=== PATIENT | male | born 2000 ===

== ENCOUNTER 2022-01-04 08:04 | Inpatient (IN) | payer SELFPAY ==
[2022-01-04] MEDS ORDERED: SODIUM CHLORIDE 0.9% 1000 ML 1,000 ML IV ONE ×3 (10:13→10:14)
[2022-01-04] MEDS ORDERED: dexAMETHasone 20 MG/5 ML VIAL IV ONE (10:13)
[2022-01-04] MEDS ORDERED: ACETAMINOPHEN 500 MG TAB PO ONE (10:14)
--- NOTE | 2022-01-04 10:20 | Emergency Department Report ---
HPI - General Chief Complaint: Fever Time Seen by Provider: 01/04/22 09:57 - HPI HPI: Room 19 The patient is a 21-year-old male present with a chief complaint of nausea vomiting diarrhea and shortness of breath. Patient states that he was diagnosed with COVID 12/21/2021. Patient states she has been vaccinated against Covid receiving 250 vaccines with the second dose occurring in September 2021. Patient states he was in his usual state of health until last night he developed chills, body aches, nausea/vomiting and diarrhea. Patient denies cough but states he developed shortness of breath last night. Patient is to fever and headache. ED Past Medical Hx - Past Medical History Previous Medical History?: Yes Additional medical history: COVID - Surgical History Past Surgical History?: No - Family History Family history: no significant - Social History Smoking Status: Never Smoker Substance Use Type: None (Denies illicit drug use), Alcohol (Rarely) ED Review of Systems ROS: Stated complaint: COUGH,CHILLS Other details as noted in HPI Constitutional: fever Eyes: denies: eye pain ENT: denies: throat pain Respiratory: shortness of breath. denies: cough Cardiovascular: denies: chest pain Endocrine: no symptoms reported Gastrointestinal: nausea, vomiting, diarrhea Genitourinary: denies: dysuria Musculoskeletal: myalgia Skin: denies: change in color Neurological: headache Physical Exam - Physical Exam Vital Signs: Vital Signs 01/04/22 01/04/22 01/04/22 09:30 09:59 10:03 Temperature 100.8 F H 100.8 F H Pulse Rate 130 H Respiratory 20 Rate Blood Pressure 129/75 [Right] O2 Sat by Pulse 96 98 Oximetry Physical Exam: GENERAL: The patient is well-developed well-nourished male lying on stretcher not appearing to be in acute distress. [] HEENT: Normocephalic. Atraumatic. Extraocular motions are intact. Patient has moist mucous membranes. NECK: Supple. Trachea midline CHEST/LUNGS: Clear to auscultation. There is no respiratory distress noted. HEART/CARDIOVASCULAR: Regular. There is tachycardia. There is no gallop rub or murmur. ABDOMEN: Abdomen is soft, nontender. Patient has normal bowel sounds. There is no abdominal distention. SKIN: There is no rash. There is no edema. There is no diaphoresis. NEURO: The patient is awake, alert, and oriented. The patient is cooperative. The patient has no focal neurologic deficits. The patient has normal speech. GCS 15 MUSCULOSKELETAL: There is no evidence of acute injury. ED Course Vital Signs 01/04/22 01/04/22 01/04/22 09:30 09:59 10:03 Temperature 100.8 F H 100.8 F H Pulse Rate 130 H Respiratory 20 Rate Blood Pressure 129/75 [Right] O2 Sat by Pulse 96 98 Oximetry ED Medical Decision Making - Lab Data Result diagrams: 01/04/22 10:18 01/04/22 10:18 Laboratory Tests 01/04/22 01/04/22 01/04/22 10:18 10:18 10:18 WBC 19.6 H RBC 5.96 H Hgb 15.8 H Hct 49.4 H MCV 83 L MCH 27 L MCHC 32 RDW 13.7 Plt Count 287 Lymph % (Auto) 4.4 L [place] % (Auto) 7.3 Eos % (Auto) 0.1 Baso % (Auto) 0.4 Lymph # (Auto) 0.9 L [place] # (Auto) 1.4 H Eos # (Auto) 0.0 Baso # (Auto) 0.1 Seg Neutrophils % 87.8 H Seg Neutrophils # 17.2 H Sodium 137 Potassium 4.4 Chloride 101.4 Carbon Dioxide 23 Anion Gap 17 BUN 12 Creatinine 1.0 Estimated GFR > 60 BUN/Creatinine Ratio 12 Glucose 108 H Lactic Acid 2.20 H* Calcium 10.0 Total Bilirubin 0.60 AST 26 ALT 30 Alkaline Phosphatase 90 Total Protein 7.9 Albumin 4.3 Albumin/Globulin Ratio 1.2 - Radiology Data Radiology results: report reviewed (Chest x-ray), image reviewed (Chest x-ray) interpreted by me: Chest x-ray-left lower lobe consolidation [facility] [address] [place] [address] XRay Report Signed Patient: CATERINA DENNISON MR#: [id number] : 2000 Acct:[id number] Age/Sex: 21 / M ADM Date: 01/04/22 Loc: ED Attending Dr: Ordering Physician: ABBY MAYER MD Date of Service: 01/04/22 Procedure(s): XR chest 1V ap Accession Number(s): [id number] cc: ABBY MAYER MD Fluoro Time In Minutes: CHEST 1 VIEW 01/04/2022 9:43 AM INDICATION / CLINICAL INFORMATION: Shortness of breath, Covid positive. COMPARISON: None available. FINDINGS: SUPPORT DEVICES: None. HEART / MEDIASTINUM: No significant abnormality. LUNGS / PLEURA: Bilateral lower lung zone parenchymal disease, left greater than right. No pneumothorax. ADDITIONAL FINDINGS: No significant addit ional findings. IMPRESSION: 1. Bilateral lower lobe pneumonia Signer Name: Tr Lopez MD Signed: 01/04/2022 10:44 AM Workstation Name: [id number] Transcribed By: TL Dictated By: Tr Lopez MD Electronically Authenticated By: Tr Lopez MD Signed Date/Time: 01/04/221043 DD/ 43 TD/TT: - Differential Diagnosis COVID pneumonia, dehydration Critical care attestation.: If time is entered above; I have spent that time in minutes in the direct care of this critically ill patient, excluding procedure time. ED Disposition Clinical Impression: Pneumonia due to COVID-19 virus Disposition: ADMITTED INPATIENT Is pt being admited?: Yes Does the pt Need Aspirin: No Condition: Fair Instructions: Bacterial Pneumonia (ED) Referrals: PRIMARY CARE, [Primary Care Provider] - 3-5 Days Time of Disposition: 12:28 (Hospitalist called (Dr. Marino))
--- NOTE | 2022-01-04 10:48 | XRay Report ---
CHEST 1 VIEW 01/04/2022 9:43 AM INDICATION / CLINICAL INFORMATION: Shortness of breath, Covid positive. COMPARISON: None available. FINDINGS: SUPPORT DEVICES: None. HEART / MEDIASTINUM: No significant abnormality. LUNGS / PLEURA: Bilateral lower lung zone parenchymal disease, left greater than right. No pneumothor ax. ADDITIONAL FINDINGS: No significant additional findings. IMPRESSION: 1. Bilateral lower lobe pneumonia Signer Name: Tr Lopez MD Signed: 01/04/2022 10:44 AM Workstation Name: [id number]
[2022-01-04 11:00] LABS: Alanine Aminotransferase 30 units/L (7-56); Albumin 4.3 g/dL (3.9-5); BUN/Creatinine Ratio 12; Blood Urea Nitrogen 12 mg/dL (9-20); Hemolysis Index 24
[2022-01-04 11:10] LABS: Basophils # (Auto) 0.1 K/mm3 (0.0-0.1); Basophils % (Auto) 0.4 % (0.0-1.8); Eosinophils % (Auto) 0.1 % (0.0-4.3); Hematocrit 49.4 % (35.5-45.6); Hemoglobin 15.8 gm/dl (11.8-15.2); Lymphocytes # (Auto) 0.9 K/mm3 (1.2-5.4); Lymphocytes % (Auto) 4.4 % (13.4-35.0); Mean Corpuscular HGB Conc 32 % (32-34); Mean Corpuscular Volume 83 fl (84-94); Monocytes # (Auto) 1.4 K/mm3 (0.0-0.8); Monocytes % (Auto) 7.3 % (0.0-7.3); Platelet Count 287 K/mm3 (140-440); Red Blood Count 5.96 M/mm3 (3.65-5.03); Red Cell Distribution Width 13.7 % (13.2-15.2)
[2022-01-04] MEDS ORDERED: AZITHROMYCIN/NS 500 MG/250 ML 500 MG/250 ML BAG IV ONE (11:16)
[2022-01-04] MEDS ORDERED: cefTRIAXone/NS 1 GM/50 ML 1 GM/50 ML BAG IV ONE (11:16)
[2022-01-04] MEDS ORDERED: ACETAMINOPHEN 325 MG TAB PO PRN (13:54)
[2022-01-04] MEDS ORDERED: ONDANSETRON 4 MG/2 ML INJ IV PRN (13:54)
[2022-01-04] MEDS ORDERED: MORPHINE 2 MG/1 ML INJ IV PRN (13:58)
[2022-01-04] MEDS ORDERED: oxyCODONE /ACETAMINOPHEN 5-325MG TAB PO PRN (13:58)
[2022-01-04] MEDS ORDERED: AZITHROMYCIN/NS 500 MG/250 ML 500 MG/250 ML BAG IV SCH (14:00)
[2022-01-04] MEDS: FAMOTIDINE 20 MG TAB PO SCH ×2 (17:10→22:00)
[2022-01-04] MEDS: ENOXAPARIN 40 MG/0.4 ML INJ SUB-Q SCH (17:10)
[2022-01-04] MEDS: dexAMETHasone 4 MG/ML VIAL IV SCH (17:10)
[2022-01-04] MEDS: cefTRIAXone/NS 2 GM/100 ML 2 GM/100 ML BAG IV SCH (17:11)
[2022-01-04] MEDS: SODIUM CHLORIDE 0.9% 1000 ML 1,000 ML IV SCH (18:39)
--- NOTE | 2022-01-04 20:34 | History and Physical Report ---
History of Present Illness Date of examination: 01/04/22 Date of admission: 01/04/22 13:55 Chief complaint: Cough and shortness of breath for 1 week Fever chills and body aches for 1 day Covid positive on December 21, 2021 History of present illness: 21-year-old [place]zbek-speaking male with no significant past medical history comes in for shortness of breath and nausea and vomiting for 1 week. Patient was apparently diagnosed with Covid infection on December 21, 2021. Patient states that he has been vaccinated and received 2 doses in September 2021. Patient was in his usual health till yesterday when he developed fever and chills body aches, nausea vomiting and diarrhea because of which he came to the emergency room early hours of the morning. Patient denies cough but developed shortness of breath since last night. - Past Medical History --Previous Medical History?: Yes --Additional medical history: COVID - Surgical History --Past Surgical History?: No - Family History --Family history: no significant - Social History --Smoking Status: Never Smoker --Substance Use Type: None (Denies illicit drug use), Alcohol (Rarely) -Review of Systems --ROS: --Constitutional fever chills and body aches for 1 to 2 days., Patient was Covid positive on December 21, 2021 --Neck no neck stiffness no lymph gland enlargement --Chest and lungs shortness of breath for 1 week --CVS no chest pain no diaphoresis no palpitations --GI no nausea no vomiting no diarrhea --Genitourinary system no dysuria no flank pain --Musculoskeletal system no muscle pains no joint pains --[employer]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 seizures --Skin no rash no itching --Psychiatric no depression no homicidal or suicidal tendencies --Hematologic no lymphedema or bruising --Endocrine no polydipsia no polyuria no cold intolerance no heat intolerance Medications and Allergies Allergies Allergy/AdvReac Type Severity Reaction Status Date / Time No Known Allergies Allergy Verified 01/04/22 09:58 Home Medications Medication Instructions Recorded Confirmed Last Taken Type No Known Home Medications [No 01/04/22 01/04/22 Unknown History Reported Home Medications] Active Meds: Active Medications Acetaminophen (Acetaminophen 325 Mg Tab) 650 mg PO Q4H PRN PRN Reason: Pain MILD(1-3)/Fever >100.5/MADRID Dexamethasone (Dexamethasone 4 Mg/Ml Vial) 8 mg IV Q24H [facility] Last Admin: 01/04/22 17:10 Dose: 8 mg Enoxaparin Sodium (Enoxaparin 40 Mg/0.4 Ml Inj) 40 mg SUB-Q QDAY [facility] Last Admin: 01/04/22 17:10 Dose: 40 mg Famotidine (Famotidine 20 Mg Tab) 20 mg PO BID [facility] Last Admin: 01/04/22 17:10 Dose: 20 mg Sodium Chloride (Nacl 0.9% 1000 Ml) 1,000 mls @ 75 mls/hr IV DIRECT ELVIN Stop: 01/05/22 08:00 Last Admin: 01/04/22 18:39 Dose: 75 mls/hr Azithromycin (Zithromax/Ns) 500 mg in 250 mls @ 250 mls/hr IV Q24H [facility] Last Admin: 01/04/22 17:11 Dose: 250 mls/hr Ceftriaxone Sodium (Rocephin/Ns 2 Gm/100 Ml) 2 gm in 100 mls @ 200 mls/hr IV Q24HR [facility]; Protocol Last Admin: 01/04/22 17:11 Dose: 200 mls/hr Morphine Sulfate (Morphine 2 Mg/1 Ml Inj) 2 mg IV Q4H PRN PRN Reason: Pain, Moderate (4-6) Ondansetron HCl (Ondansetron 4 Mg/2 Ml Inj) 4 mg IV Q8H PRN PRN Reason: Nausea And Vomiting Oxycodone/Acetaminophen (Oxycodone /Acetaminophen 5-325mg Tab) 1 tab PO Q6H PRN PRN Reason: Pain, Moderate (4-6) Sodium Chloride (Sodium Chloride 0.9% 10 Ml Flush Syringe) 10 ml IV BID [facility] Last Admin: 01/04/22 17:11 Dose: 10 ml Sodium Chloride (Sodium Chloride 0.9% 10 Ml Flush Syringe) 10 ml IV PRN PRN PRN Reason: LINE FLUSH Exam - Constitutional Vitals: Temp Pulse Resp BP Pulse Ox 100.8 F H 108 H 16 115/94 99 01/04/22 10:03 01/04/22 18:19 01/04/22 18:19 01/04/22 18:19 01/04/22 18:19 General appearance: Present: no acute distress, well-nourished - EENT Eyes: Present: PERRL ENT: hearing intact, clear oral mucosa - Neck Neck: Present: supple, normal ROM - Respiratory Respiratory effort: normal Respiratory: bilateral: CTA, rales, rhonchi - Cardiovascular Heart rate: 78 Rhythm: regular Heart Sounds: Present: S1 & S2. Absent: rub, click - Extremities Extremities: no ischemia, pulses symmetrical, No edema Peripheral Pulses: within normal limits - Abdominal General gastrointestinal: Present: soft, non-tender, non-distended, normal bowel sounds Male genitourinary: Present: normal - Integumentary Integumentary: Present: clear, warm, dry - Musculoskeletal Musculoskeletal: gait normal, strength equal bilaterally - Psychiatric Psychiatric: appropriate mood/affect, intact judgment & insight - Neurologic Neurologic: CNII-XII intact, moves all extremities - Allied Health Allied health notes reviewed: nursing, case management Results - Labs CBC & Chem 7: 01/04/22 10:18 01/04/22 10:18 Labs: Laboratory Last Values WBC 19.6 K/mm3 (4.5-11.0) H 01/04/22 10:18 RBC 5.96 M/mm3 (3.65-5.03) H 01/04/22 10:18 Hgb 15.8 gm/dl (11.8-15.2) H 01/04/22 10:18 Hct 49.4 % (35.5-45.6) H 01/04/22 10:18 MCV 83 fl (84-94) L 01/04/22 10:18 MCH 27 pg (28-32) L 01/04/22 10:18 MCHC 32 % (32-34) 01/04/22 10:18 RDW 13.7 % (13.2-15.2) 01/04/22 10:18 Plt Count 287 K/mm3 (140-440) 01/04/22 10:18 Lymph % (Auto) 4.4 % (13.4-35.0) L 01/04/22 10:18 [place] % (Auto) 7.3 % (0.0-7.3) 01/04/22 10:18 Eos % (Auto) 0.1 % (0.0-4.3) 01/04/22 10:18 Baso % (Auto) 0.4 % (0.0-1.8) 01/04/22 10:18 Lymph # (Auto) 0.9 K/mm3 (1.2-5.4) L 01/04/22 10:18 [place] # (Auto) 1.4 K/mm3 (0.0-0.8) H 01/04/22 10:18 Eos # (Auto) 0.0 K/mm3 (0.0-0.4) 01/04/22 10:18 Baso # (Auto) 0.1 K/mm3 (0.0-0.1) 01/04/22 10:18 Seg Neutrophils % 87.8 % (40.0-70.0) H 01/04/22 10:18 Seg Neutrophils # 17.2 K/mm3 (1.8-7.7) H 01/04/22 10:18 Sodium 137 mmol/L (137-145) 01/04/22 10:18 Potassium 4.4 mmol/L (3.6-5.0) 01/04/22 10:18 Chloride 101.4 mmol/L (98-107) 01/04/22 10:18 Carbon Dioxide 23 mmol/L (22-30) 01/04/22 10:18 Anion Gap 17 mmol/L 01/04/22 10:18 BUN 12 mg/dL (9-20) 01/04/22 10:18 Creatinine 1.0 mg/dL (0.8-1.3) 01/04/22 10:18 Estimated GFR > 60 ml/min 01/04/22 10:18 BUN/Creatinine Ratio 12 % 01/04/22 10:18 Glucose 108 mg/dL (75-100) H 01/04/22 10:18 Lactic Acid 1.90 mmol/L (0.7-2.0) 01/04/22 13:43 Calcium 10.0 mg/dL (8.4-10.2) 01/04/22 10:18 Total Bilirubin 0.60 mg/dL (0.1-1.2) 01/04/22 10:18 AST 26 units/L (5-40) 01/04/22 10:18 ALT 30 units/L (7-56) 01/04/22 10:18 Alkaline Phosphatase 90 units/L (35-129) 01/04/22 10:18 Total Protein 7.9 g/dL (6.3-8.2) 01/04/22 10:18 Albumin 4.3 g/dL (3.9-5) 01/04/22 10:18 Albumin/Globulin Ratio 1.2 % 01/04/22 10:18 Short CBC 01/04/22 Range/Units 10:18 WBC 19.6 H (4.5-11.0) K/mm3 Hgb 15.8 H (11.8-15.2) gm/dl Hct 49.4 H (35.5-45.6) % Plt Count 287 (140-440) K/mm3 BMP 01/04/22 10:18 Sodium 137 Potassium 4.4 Chloride 101.4 Carbon Dioxide 23 BUN 12 Creatinine 1.0 Glucose 108 H Calcium 10.0 Liver Function 01/04/22 Range/Units 10:18 Total Bilirubin 0.60 (0.1-1.2) mg/dL AST 26 (5-40) units/L ALT 30 (7-56) units/L Alkaline Phosphatase 90 (35-129) units/L Albumin 4.3 (3.9-5) g/dL Microbiology: Microbiology 01/04/22 10:18 Peripheral/Venous Blood Culture - Preliminary Culture in Progress 01/04/22 10:18 Peripheral/Venous Blood Culture - Preliminary Culture in Progress - Imaging and Cardiology Chest x-ray: report reviewed Imaging and Cardiology: Chest x-ray Bilateral lower lobe pneumonia Assessment and Plan Advance Directives: Yes (Full code) VTE prophylaxis?: Chemical Plan of care discussed with patient/family: Yes - Patient Problems (1) SIRS (systemic inflammatory response syndrome) Current Visit: Yes Status: Acute Plan to address problem: Clinical picture consistent with systemic inflammatory response syndrome. Patient's white count is 90,600. Lactic acidosis slightly high at 2.2. (2) Acute respiratory failure with hypoxia Current Visit: Yes Status: Acute Plan to address problem: Patient is hypoxic on room air. Patient has bilateral infiltrates. Possible Covid pneumonia. Needs oxygen supplementation. On 6 L nasal cannula oxygen. (3) Bilateral pneumonia Current Visit: Yes Status: Acute Plan to address problem: Patient started on IV Zithromax and IV ceftriaxone for now IV Decadron also. (4) Person under investigation for COVID-19 Current Visit: Yes Status: Acute Plan to address problem: Patient under investigation for Covid status. Patient has Patient had vaccination x2 doses. Had vaccination in September 2021. Due for booster in 6 months. (5) DVT prophylaxis Current Visit: Yes Status: Acute Plan to address problem: On Lovenox and GI prophylaxis (6) Advance care planning Current Visit: Yes Status: Acute
[2022-01-05 05:07] LABS: Basophils % (Auto) 0.3 % (0.0-1.8); Hematocrit 44.5 % (35.5-45.6); Hemoglobin 14.2 gm/dl (11.8-15.2); Lymphocytes # (Auto) 1.4 K/mm3 (1.2-5.4); Lymphocytes % (Auto) 8.5 % (13.4-35.0); Mean Corpuscular HGB Conc 32 % (32-34); Mean Corpuscular Volume 83 fl (84-94); Monocytes # (Auto) 0.5 K/mm3 (0.0-0.8); Monocytes % (Auto) 3.1 % (0.0-7.3); Platelet Count 282 K/mm3 (140-440); Red Blood Count 5.35 M/mm3 (3.65-5.03)
[2022-01-05 05:29] LABS: Alanine Aminotransferase 23 units/L (7-56); Albumin 3.9 g/dL (3.9-5); BUN/Creatinine Ratio 14; Blood Urea Nitrogen 11 mg/dL (9-20); Calcium 9.2 mg/dL (8.4-10.2); Hemolysis Index 11
[2022-01-05] MEDS: SODIUM CHLORIDE 0.9% 1000 ML 1,000 ML IV SCH (05:39)
--- NOTE | 2022-01-05 08:31 | Progress Note ---
Assessment and Plan Assessment and plan: #Sepsis secondary to Pneumonia #Lactic acidosis-resolved -afebrile, WBC count and tachycardia improving -Blood culture 01/04 NGTD x 24hrs, will continue to monitor for further growth -continue treatment of PNA as below #Acute respiratory failure with hypoxia-resolved -patient weaned to RA without issue -likely secondary to PNA #Bilateral pneumonia -CXR suggestive of PNA -continue zithromax and rocephin for 3 and 5 days total course -procalcitonin ordered -ID following, assistance appreciated #Person under investigation for COVID-19 -Coronavirus PCR pending -diagnosed with COVID-19 December 10 at urgent care -vaccinated x 2 doses #Obesity - Counseled patient on the importance of weight loss, incorporating exercise, and dietary changes (lean meats, fresh fruits and vegetables, and water intake). Patient expresses understanding. - Time: +15 min #Advanced care planning -Disease education conducted, care plan discussed, diagnoses discussed, prognosis discussed, and patient acknowledges understanding with care plan -Time: +30 min History Interval history: No acute events overnight. Patient reports feeling much better than he did when he first came. Denies nausea and vomiting at this time. Has had productive cough in the past, but no cough this hospitalization. Hospitalist Physical - Physical exam Narrative exam: GENERAL: Well-developed well-nourished. In no acute distress. HEENT: Normocephalic. Atraumatic. NECK: Supple. CHEST/LUNGS: CTAB on room air HEART/CARDIOVASCULAR: RRR. No murmur, rubs or gallops appreciated. ABDOMEN: +BS. NT/ND. SKIN: No rashes noted. NEURO: No focal motor deficit. Follows all commands. MUSCULOSKELETAL: No joint effusion EXTREMITIES: No cyanosis, clubbing or edema. PSYCH: Cooperative. - Constitutional Vitals: Temp Pulse Resp BP Pulse Ox 97.7 F 98 H 20 157/81 92 01/05/22 05:09 01/05/22 05:09 01/05/22 05:09 01/05/22 05:09 01/05/22 05:09 General appearance: Present: no acute distress, well-nourished Results - Labs CBC & Chem 7: 01/05/22 04:14 01/05/22 04:14 Labs: Laboratory Last Values WBC 16.5 K/mm3 (4.5-11.0) H 01/05/22 04:14 RBC 5.35 M/mm3 (3.65-5.03) H 01/05/22 04:14 Hgb 14.2 gm/dl (11.8-15.2) 01/05/22 04:14 Hct 44.5 % (35.5-45.6) 01/05/22 04:14 MCV 83 fl (84-94) L 01/05/22 04:14 MCH 27 pg (28-32) L 01/05/22 04:14 MCHC 32 % (32-34) 01/05/22 04:14 RDW 14.0 % (13.2-15.2) 01/05/22 04:14 Plt Count 282 K/mm3 (140-440) 01/05/22 04:14 Lymph % (Auto) 8.5 % (13.4-35.0) L 01/05/22 04:14 [place] % (Auto) 3.1 % (0.0-7.3) 01/05/22 04:14 Eos % (Auto) 0.0 % (0.0-4.3) 01/05/22 04:14 Baso % (Auto) 0.3 % (0.0-1.8) 01/05/22 04:14 Lymph # (Auto) 1.4 K/mm3 (1.2-5.4) 01/05/22 04:14 [place] # (Auto) 0.5 K/mm3 (0.0-0.8) 01/05/22 04:14 Eos # (Auto) 0.0 K/mm3 (0.0-0.4) 01/05/22 04:14 Baso # (Auto) 0.0 K/mm3 (0.0-0.1) 01/05/22 04:14 Seg Neutrophils % 88.1 % (40.0-70.0) H 01/05/22 04:14 Seg Neutrophils # 14.5 K/mm3 (1.8-7.7) H 01/05/22 04:14 Sodium 138 mmol/L (137-145) 01/05/22 04:14 Potassium 4.0 mmol/L (3.6-5.0) 01/05/22 04:14 Chloride 103.8 mmol/L (98-107) 01/05/22 04:14 Carbon Dioxide 22 mmol/L (22-30) 01/05/22 04:14 Anion Gap 16 mmol/L 01/05/22 04:14 BUN 11 mg/dL (9-20) 01/05/22 04:14 Creatinine 0.8 mg/dL (0.8-1.3) 01/05/22 04:14 Estimated GFR > 60 ml/min 01/05/22 04:14 BUN/Creatinine Ratio 14 % 01/05/22 04:14 Glucose 174 mg/dL (75-100) H 01/05/22 04:14 Lactic Acid 1.90 mmol/L (0.7-2.0) 01/04/22 13:43 Calcium 9.2 mg/dL (8.4-10.2) 01/05/22 04:14 Total Bilirubin 0.40 mg/dL (0.1-1.2) 01/05/22 04:14 AST 16 units/L (5-40) 01/05/22 04:14 ALT 23 units/L (7-56) 01/05/22 04:14 Alkaline Phosphatase 68 units/L (35-129) 01/05/22 04:14 Total Protein 7.0 g/dL (6.3-8.2) 01/05/22 04:14 Albumin 3.9 g/dL (3.9-5) 01/05/22 04:14 Albumin/Globulin Ratio 1.3 % 01/05/22 04:14 Microbiology: Microbiology 01/04/22 10:18 Peripheral/Venous Blood Culture - Preliminary Culture in Progress 01/04/22 10:18 Peripheral/Venous Blood Culture - Preliminary Culture in Progress Active Medications - Current Medications Current Medications: Generic Name Dose Route Start Last Admin Trade Name Freq PRN Reason Stop Dose Admin Acetaminophen 650 mg 01/04/22 13:54 Acetaminophen 325 Mg Tab PO Q4H PRN Pain MILD(1-3)/Fever >100.5/MADRID Azithromycin 500 mg 01/05/22 10:00 Azithromycin 250 Mg Tab PO 01/08/22 10:01 QDAY ELVIN Dexamethasone 8 mg 01/04/22 14:00 01/04/22 17:10 Dexamethasone 4 Mg/Ml Vial IV 8 mg Q24H ELVIN Administration Enoxaparin Sodium 40 mg 01/04/22 14:00 01/04/22 17:10 Enoxaparin 40 Mg/0.4 Ml Inj SUB-Q 40 mg QDAY ELVIN Administration Famotidine 20 mg 01/04/22 14:00 01/04/22 22:00 Famotidine 20 Mg Tab PO 20 mg BID ELVIN Administration Ceftriaxone Sodium 2 gm in 100 mls @ 200 mls/hr 01/04/22 14:00 01/04/22 17:11 Rocephin/Ns 2 Gm/100 Ml IV 01/08/22 18:59 200 mls/hr Q24HR ELVIN Administration Protocol Morphine Sulfate 2 mg 01/04/22 13:58 Morphine 2 Mg/1 Ml Inj IV Q4H PRN Pain, Moderate (4-6) Ondansetron HCl 4 mg 01/04/22 13:54 Ondansetron 4 Mg/2 Ml Inj IV Q8H PRN Nausea And Vomiting Oxycodone/Acetaminophen 1 tab 01/04/22 13:58 Oxycodone /Acetaminophen 5-325mg Tab PO Q6H PRN Pain, Moderate (4-6) Sodium Chloride 10 ml 01/04/22 14:00 01/04/22 22:01 Sodium Chloride 0.9% 10 Ml Flush Syringe IV 10 ml BID ELVIN Administration Sodium Chloride 10 ml 01/04/22 13:54 Sodium Chloride 0.9% 10 Ml Flush Syringe IV PRN PRN LINE FLUSH
[2022-01-05] MEDS: ENOXAPARIN 40 MG/0.4 ML INJ SUB-Q SCH (10:32)
[2022-01-05] MEDS: cefTRIAXone/NS 2 GM/100 ML 2 GM/100 ML BAG IV SCH (10:32)
[2022-01-05] MEDS: AZITHROMYCIN 250 MG TAB PO SCH (10:33)
[2022-01-05] MEDS: FAMOTIDINE 20 MG TAB PO SCH ×2 (10:33→21:30)
--- NOTE | 2022-01-05 11:14 | Consultation ---
History of Present Illness - Reason for Consult Consult date: 01/05/22 - History of Present Illness 21-year-old male no past medical history presented to hospital complaining of shortness of breath for the past 1 week. This is associated with nausea and vomiting. He reported being diagnosed with COVID-19 on 12/21/2021 despite being vaccinated rhytidosis. He also developed 1 day of fevers, chills, body aches. Febrile to 100.8, tachycardic with a white count of 19.6. Normal renal functio n, pending procalcitonin and Covid PCR. Currently on ceftriaxone and azithromycin. Blood cultures pending. Imaging personally reviewed: Chest x-ray: Bilateral lower lobe pneumonia. Review of systems: Deferred to reduce to the risk of transmission of COVID-19 Past History Past Medical History: No medical history Past Surgical History: No surgical history Social history: no significant social history Family history: diabetes Medications and Allergies Allergies Allergy/AdvReac Type Severity Reaction Status Date / Time No Known Allergies Allergy Verified 01/04/22 09:58 Home Medications Medication Instructions Recorded Confirmed Last Taken Type No Known Home Medications [No 01/04/22 01/04/22 Unknown History Reported Home Medications] Active Meds: Active Medications Acetaminophen (Acetaminophen 325 Mg Tab) 650 mg PO Q4H PRN PRN Reason: Pain MILD(1-3)/Fever >100.5/MADRID Azithromycin (Azithromycin 250 Mg Tab) 500 mg PO QDAY [facility] Stop: 01/08/22 10:01 Last Admin: 01/05/22 10:33 Dose: 500 mg Dexamethasone (Dexamethasone 4 Mg/Ml Vial) 8 mg IV Q24H [facility] Last Admin: 01/04/22 17:10 Dose: 8 mg Enoxaparin Sodium (Enoxaparin 40 Mg/0.4 Ml Inj) 40 mg SUB-Q QDAY [facility] Last Admin: 01/05/22 10:32 Dose: 40 mg Famotidine (Famotidine 20 Mg Tab) 20 mg PO BID [facility] Last Admin: 01/05/22 10:33 Dose: 20 mg Ceftriaxone Sodium (Rocephin/Ns 2 Gm/100 Ml) 2 gm in 100 mls @ 200 mls/hr IV Q24HR [facility]; Protocol Stop: 01/08/22 18:59 Last Admin: 01/05/22 10:32 Dose: 200 mls/hr Morphine Sulfate (Morphine 2 Mg/1 Ml Inj) 2 mg IV Q4H PRN PRN Reason: Pain, Moderate (4-6) Ondansetron HCl (Ondansetron 4 Mg/2 Ml Inj) 4 mg IV Q8H PRN PRN Reason: Nausea And Vomiting Oxycodone/Acetaminophen (Oxycodone /Acetaminophen 5-325mg Tab) 1 tab PO Q6H PRN PRN Reason: Pain, Moderate (4-6) Sodium Chloride (Sodium Chloride 0.9% 10 Ml Flush Syringe) 10 ml IV BID [facility] Last Admin: 01/05/22 10:33 Dose: 10 ml Sodium Chloride (Sodium Chloride 0.9% 10 Ml Flush Syringe) 10 ml IV PRN PRN PRN Reason: LINE FLUSH Physical Examination - Physical Exam Narrative exam: Physical exam deferred to reduce risk of transmission of COVID-19. Please refer to primary team's note. - Constitutional Vitals: Vital Signs Temp Pulse Resp BP Pulse Ox 97.7 F 98 H 20 157/81 98 01/05/22 05:09 01/05/22 05:09 01/05/22 05:09 01/05/22 05:09 01/05/22 10:00 Temperature -Last 24 Hours Temperature 97.7 F Temperature 98.3 F Temperature 97.9 F Results - Labs CBC & Chem 7: 01/05/22 04:14 01/05/22 04:14 Labs: Abnormal lab results 01/04/22 01/05/22 01/05/22 Range/Units 10:18 04:14 04:14 WBC 19.6 H 16.5 H (4.5-11.0) K/mm3 RBC 5.96 H 5.35 H (3.65-5.03) M/mm3 Hgb 15.8 H (11.8-15.2) gm/dl Hct 49.4 H (35.5-45.6) % MCV 83 L 83 L (84-94) fl MCH 27 L 27 L (28-32) pg Lymph % (Auto) 4.4 L 8.5 L (13.4-35.0) % Lymph # (Auto) 0.9 L (1.2-5.4) K/mm3 Dougherty # (Auto) 1.4 H (0.0-0.8) K/mm3 Seg Neutrophils % 87.8 H 88.1 H (40.0-70.0) % Seg Neutrophils # 17.2 H 14.5 H (1.8-7.7) K/mm3 Glucose 174 H (75-100) mg/dL Assessment and Plan Cultures: Blood culture pending A/P: 21-year-old man past medical history morbid obesity now with: #Acute sepsis: With fevers, leukocytosis, tachycardia. Secondary to bilateral pneumonia. #Bilateral pneumonia: Reportedly was diagnosed with COVID-19 2 weeks ago, however no documentation of it. Probably more likely bacterial pneumonia. Saturations remaining high. #Morbid obesity Recs: -Agree with ceftriaxone and azithromycin for 5 and 3 days respectively -Follow COVID-19 PCR -Ordered procalcitonin -Follow blood cultures Thank you for the consult, we will continue to follow. Dylan Thornton MD [facility] ([facility]) O: [phone] F: [phone]
[2022-01-05 11:45] LABS: Bilirubin,Urine NEG (Negative); Blood,Urine NEG (Negative); Color,Urine Yellow (Yellow); Mucus,Urine FEW /HPF; Protein,Urine <15 mg/dL mg/dL (Negative); Urobilinogen,Urine < 2.0 mg/dL (<2.0); WBC,Urine < 1.0 /HPF (0.0-6.0)
[2022-01-05] MEDS: dexAMETHasone 4 MG/ML VIAL IV SCH (13:22)
[2022-01-06 05:26] VITALS: BP 145/81
[2022-01-06 08:35] LABS: Hematocrit 46.6 % (35.5-45.6); Mean Corpuscular HGB Conc 32 % (32-34); Mean Corpuscular Volume 83 fl (84-94); Platelet Count 315 K/mm3 (140-440); Red Blood Count 5.61 M/mm3 (3.65-5.03); Red Cell Distribution Width 14.6 % (13.2-15.2)
[2022-01-06] MEDS: FAMOTIDINE 20 MG TAB PO SCH (09:05)
[2022-01-06] MEDS: AZITHROMYCIN 250 MG TAB PO SCH (09:05)
[2022-01-06] MEDS: cefTRIAXone/NS 2 GM/100 ML 2 GM/100 ML BAG IV SCH (09:06)
[2022-01-06] MEDS: ENOXAPARIN 40 MG/0.4 ML INJ SUB-Q SCH (09:06)
--- NOTE | 2022-01-06 09:39 | Discharge Summary ---
Providers - Providers Date of Admission: 01/04/22 13:55 Attending physician: ETHAN NINA MD 01/04/22 13:58 Consult to Physician [CONS] Routine Comment: Consulting Provider: JIAN JO Physician Instructions: Reason For Exam: Bilateral pneumonia Primary care physician: NJ RODRIGUEZ MD Hospitalization Condition: Fair Disposition: 30 STILL A PATIENT Exam - Constitutional Vitals: Temp Pulse Resp BP Pulse Ox 97.7 F 86 18 145/81 100 01/06/22 04:49 01/06/22 04:49 01/06/22 04:49 01/06/22 04:49 01/06/22 07:23 Plan Care Plan Goals: If you began to have worsening cough, shortness of breath or ill feeling, please see your PCP. Please complete the antibiotics you've been prescribed. Follow up with: NJ RODRIGUEZ MD [Primary Care Provider] - 3-5 Days Prescriptions: Amoxicillin/K Clav Tab [Augmentin 875 mg] 1 tab PO Q12HR 3 Days #6 tab Azithromycin [Zithromax TAB] 500 mg PO QDAY 1 Days #1 tablet
[2022-01-06] MEDS ORDERED: DEXAMETHASONE 4 MG TAB PO SCH (10:00)
== END 2022-01-06 10:49 | disposition home or self-care (01) | DRG 871 ==
LOC: ED 08:04 → 3A 13:55
PROVIDERS: ADMIT Internal Medicine; ATTEND Student in an Organized Health Care Education/Training Program
DX: A41.9 Sepsis, unspecified organism (principal); J96.01 Acute respiratory failure with hypoxia; J18.9 Pneumonia, unspecified organism; Z68.41 Body mass index [BMI] 40.0-44.9, adult; Z20.822 Contact with and (suspected) exposure to COVID-19; Z71.3 Dietary counseling and surveillance; E66.01 Morbid (severe) obesity due to excess calories
CPT/HCPCS: 36415; 71045; 80053; 81001; 82140; 85025; 85027; 87040; G0378; Q0162; J0456; J0696; J1100; J1650; J7030; U0003